=== PATIENT | male | born 1985 | race Caucasian/White ===

== ENCOUNTER 2020-05-11 11:27 | Emergency (ER) | payer MEDICAID ==
[~2020-05-11] VITALS: Ht 162.6 cm; Wt 71.7 kg
[2020-05-11 11:34] VITALS: BP 143/59
--- NOTE | 2020-05-11 11:34 | NUR ---
Patient ambulated to bed 01 with steady gait
--- NOTE | 2020-05-11 11:57 | NUR ---
35M with no known allergies PMH of hypothyroid and Covid+ (03/2020) c/o dry cough [id number] and body aches this morning. Reports subjective fever yesterday. States he is worried he has covid again and wants to be tested. Endorses he is from [facility] and has a follow up with Primary in a couple weeks. Denies fever today, cough chills SOB CP N/V urinary issues and melena at this time. A&o x3, speaks in full clear sentences, follows commands. No amu, respirations e/u. abdomen is soft nondistended nonttp. LORETTA ARREOLA bedside pending orders Addendum: 05/11/20 at 1248 by [place] 35M with no known allergies PMH of hypothyroid and Covid+ (03/2020) c/o dry cough [id number] and body aches this morning. Reports subjective fever yesterday. Endorses diarrhea x4 today. States he is worried he has covid again and wants to be tested. Endorses he is from [facility] and has a follow up with Primary in a couple weeks. Denies fever today, cough chills SOB CP N/V urinary issues and melena at this time. A&o x3, nonfebrile, speaks in full clear sentences, follows commands. No amu, respirations e/u. abdomen is soft nondistended nonttp. LORETTA ARREOLA bedside pending orders
[2020-05-11 12:19] LABS: BASOPHILS # (AUTO) 0.1 K/uL (0.00-0.22); BASOPHILS % (AUTO) 0.7 % (0.0-2.0); EOSINOPHILS # (AUTO) 0.1 K/uL (0-0.4); EOSINOPHILS % (AUTO) 0.6 % (0.0-4.0); HEMATOCRIT 42.9 % (36-52); HEMOGLOBIN 14.7 g/dL (12.0-18.0); LYMPHOCYTES # (AUTO) 1.2 K/uL (2.0-11.5); LYMPHOCYTES % (AUTO) 10.4 % (20.5-51.1); MEAN CORPUSCULAR HEMOGLOBIN 29 pg (27-31); MEAN CORPUSCULAR HGB CONC 34 g/dL (33-37); MEAN CORPUSCULAR VOLUME 85.1 fL (80-94); MONOCYTES # (AUTO) 0.8 K/uL (0.8-1.0); MONOCYTES % (AUTO) 6.8 % (1.7-9.3); NEUTROPHILS # (AUTO) 9.4 K/uL (1.8-7.7); NEUTROPHILS % (AUTO) 81.5 % (42.2-75.2); PLATELET COUNT (AUTO) 242 K/uL (140-450); RED BLOOD CELL COUNT(AUTO) 5.04 MIL/uL (4.20-6.10); RED CELL DISTRIBUTION WIDTH 13.9 % (11.6-13.7); WHITE BLOOD COUNT (AUTO) 11.5 K/uL (4.8-10.8)
[2020-05-11 13:25] LABS: ALBUMIN 4.2 g/dL (3.4-5.0); ANION GAP 11.6 (8-16); CARBON DIOXIDE 27.8 mmol/L (21-32); CREATININE 0.8 mg/dL (0.6-1.3); FREE T4 (FREE THYROXINE) 0.88 ng/dL (0.76-1.46); POTASSIUM 3.4 mmol/L (3.5-5.1); THYROID STIMULATING HORMONE 13.83 uIU/mL (0.34-3.74); TOTAL BILIRUBIN 0.6 mg/dL (0.0-1.0)
--- NOTE | 2020-05-11 14:49 | NUR ---
Pt resting semifowlers eyes closed arousable to voice. Pt states he feels about the same as when he go here. No cough seen since placement in room. Endorses body achyness at this time. A&O x3, speaks in full clear sentences, follows commands. No AMU, respirations E/U. [facility] Pending dispo
[2020-05-11 14:53] VITALS: BP 131/79
--- NOTE | 2020-05-11 14:54 | NUR ---
Patient discharged with v/s stable. Written and verbal after care instructions given and explained. Patient verbalized understanding. Ambulatory with steady gait. All questions addressed prior to discharge. Advised to follow up with PMD. NO IV present to remove. No belongings to return.
== END 2020-05-11 14:54 | disposition home or self-care (01) ==
LOC: MED 11:27
DX: R05 Cough (principal); R19.7 Diarrhea, unspecified; Z20.822 Contact with and (suspected) exposure to COVID-19
CPT/HCPCS: 71045; 80053; 84439; 84443; 85025; 99284; U0003